=== PATIENT | female | born 1990 | race Caucasian/White ===

== ENCOUNTER 2023-01-31 23:50 | Inpatient (IN) | payer OTHER ==
[2023-02-01] MEDS: ELECTROLYTE-148 SOLN 1,000 ML IV SCH ×2 (00:15→02:00)
[2023-02-01] MEDS ORDERED: FENTANYL/BUPIVACAINE/NS/PF - PCEA - 50 ML DISP.SYRIN EP ONE (00:39)
[2023-02-01 00:43] LABS: BASO % 0.1 % (0-2.0); EOS % 0.3 % (0-4.5); HEMATOCRIT 37.2 % (32.4-45.2); HEMOGLOBIN 12.6 GM/dL (10.7-15.3); LYMPH % 11.5 % (8-40); MCH 30.5 pg (25.7-33.7); MCHC 33.8 g/dl (32.0-36.0); MEAN CELL VOLUME 90.3 fl (80-96); MEAN PLT VOLUME 9.8 fl (7.5-11.1); MONO % 6.3 % (3.8-10.2); NEUT % 81.8 % (42.8-82.8); PLATELET COUNT 224 10^3/uL (134-434); RBC 4.12 M/mm3 (3.60-5.2); RDW 13.8 % (11.6-15.6); WHITE BLOOD COUNT 12.3 K/mm3 (4.0-10.0)
[2023-02-01] MEDS ORDERED: NALOXONE HCL 0.4 MG/ML VIAL IVPUSH PRN (01:01)
[2023-02-01 01:07] LABS: POTASSIUM 3.7 mmol/L (3.5-5.1)
[2023-02-01 01:08] LABS: BLOOD UREA NITROGEN 10.7 mg/dL (7-18); CALCIUM 8.8 mg/dL (8.5-10.1)
[2023-02-01] MEDS ORDERED: BUPIVACAINE HCL/PF 0.25% (2.5MG/ML) 10 ML VIAL ONE (01:08)
[2023-02-01] MEDS ORDERED: LIDO 2%/EPI 1:200000 PRESRVFRE (20 ML SDVIAL) ONE (01:08)
[2023-02-01 01:09] VITALS: BMI 31.4
[2023-02-01 01:12] LABS: CREATININE 0.5 mg/dL (0.55-1.3)
[2023-02-01] MEDS ORDERED: FENTANYL/BUPIVACAINE/NS/PF - PCEA - 50 ML DISP.SYRIN EP SCH (01:15)
[2023-02-01] MEDS ORDERED: OXYTOCIN 20 UNITS in 0.9% NS 20 UNIT/1,000 ML INFUS.BAG IV ONE (01:21)
[2023-02-01] MEDS ORDERED: OXYTOCIN 30 UNITS in 0.9% NS 30 UNIT/500 ML INFUS.BAG IVPB SCH (01:30)
[2023-02-01] MEDS ORDERED: OXYTOCIN 30 UNITS in 0.9% NS 30 UNIT/500 ML INFUS.BAG IVPB ONE (01:32)
[2023-02-01] MEDS ORDERED: MISOPROSTOL 200 MCG TABLET ONE (05:11)
[2023-02-01] MEDS ORDERED: METHYLERGONOVINE MALEATE 0.2 MG/1 ML AMP IM PRN (05:33)
[2023-02-01] MEDS ORDERED: BENZOCAINE 28 GM HEMORRHOIDAL OINTMENT TP PRN (05:33)
[2023-02-01] MEDS ORDERED: WITCH HAZEL 50% (TUCKS) 40 PAD/JAR PAD TP PRN (05:33)
[2023-02-01] MEDS ORDERED: BENZOCAINE 20% 57 GM BOTTLE TP PRN (05:33)
[2023-02-01] MEDS ORDERED: BISACODYL 10 MG SUPP.RECT RC PRN (05:33)
[2023-02-01] MEDS ORDERED: ACETAMINOPHEN 325 MG TABLET (FP) PO PRN (05:33)
[2023-02-01] MEDS ORDERED: MISOPROSTOL 200 MCG TABLET PO ONE (05:42)
[2023-02-01] MEDS ORDERED: OXYTOCIN 20 UNITS in 0.9% NS 20 UNIT/1,000 ML INFUS.BAG IV SCH (05:45)
[2023-02-01 06:33] LABS: CORD BASE EXCESS -5.3 mmol/L (0-2); CORD HCO3 21.6 mmHg (20-29); CORD PCO2 46.9 mmHg (30-78); CORD pH 7.281 (7.14-7.44)
[2023-02-01 06:34] LABS: CORD HCO3 18.7 mmHg (20-29); CORD PCO2 56.7 mmHg (30-78); CORD pH 7.135 (7.14-7.44)
[2023-02-01] MEDS: IBUPROFEN 600 MG TABLET (FP) PO PRN ×2 (06:45→18:27)
[2023-02-01] MEDS ORDERED: IBUPROFEN 600 MG TABLET (FP) PO ONE (06:45)
[2023-02-02 06:20] VITALS: RESP 18
[2023-02-02] MEDS: IBUPROFEN 600 MG TABLET (FP) PO PRN ×2 (06:23→11:01)
[2023-02-02 09:55] LABS: BASO % 0.3 % (0-2.0); EOS % 1.5 % (0-4.5); LYMPH % 21.2 % (8-40); MCH 31.2 pg (25.7-33.7); MCHC 34.5 g/dl (32.0-36.0); MEAN CELL VOLUME 90.7 fl (80-96); MEAN PLT VOLUME 10.1 fl (7.5-11.1); PLATELET COUNT 173 10^3/uL (134-434); RBC 3.53 M/mm3 (3.60-5.2); RDW 13.4 % (11.6-15.6); WHITE BLOOD COUNT 10.2 K/mm3 (4.0-10.0)
[2023-02-02] MEDS: ELECTROLYTE-148 SOLN 1,000 ML IV SCH (20:21)
[2023-02-02] MEDS ORDERED: SENNOSIDES/DOCUSATE COMBO (SENNA PLUS) TABLET (UD) PO PRN (22:00)
[2023-02-03] MEDS: IBUPROFEN 600 MG TABLET (FP) PO PRN ×2 (02:12→08:46)
[2023-02-03 12:06] VITALS: BP 116/73; PULSE 87; TEMP 98
== END 2023-02-03 13:15 | disposition home or self-care (01) | DRG 560 ==
LOC: JLDR 23:50 → J3W 02-01 08:24
PROVIDERS: ADMIT Obstetrics & Gynecology; ATTEND Obstetrics & Gynecology
PROC: 10E0XZZ Delivery of Products of Conception, External Approach (ICD-10-PCS; principal; 2023-02-01)
PROC: 0KQM0ZZ Repair Perineum Muscle, Open Approach (ICD-10-PCS; 2023-02-01)
DX: O34.219 Maternal care for unspecified type scar from previous cesarean delivery (principal); O70.9 Perineal laceration during delivery, unspecified; Z3A.39 39 weeks gestation of pregnancy; Z37.0 Single live birth
CPT/HCPCS: 36415; 36600; 59025; 80048; 82803; 85025; 85730; 86780; 86850; 86900; 86901